=== PATIENT | female | born 1990 | race Caucasian/White ===

== ENCOUNTER 2024-09-02 13:54 | Outpatient (REF) | payer MEDICAID, SELFPAY ==
--- NOTE | ~2024-09-02 | XR_ITS ---
CLINICAL HISTORY: js p fall, pain Exam: AP, lateral, and open-mouth odontoid views of the cervical spine. Comparison: None. Findings: There is reversal of the normal cervical lordosis with mild kyphosis of the midcervical spine. No focal bony malalignment is identified. No fracture or prevertebral soft tissue swelling. Disc space heights are well preserved. Impression: 1. No fracture. 2. Findings most characteristic of muscle spasm. This document has been electronically signed by: Anson Leyva MD on 09/02/2024 17:43:34
--- NOTE | ~2024-09-02 | XR_ITS ---
CLINICAL HISTORY: S P FALL, PAIN Exam: AP, lateral, and spot lateral views of the lumbar spine. Comparison: None. Findings: Bony alignment of the lumbar vertebral bodies is anatomic. No acute fracture. Disc space heights are well preserved. Incidental note is made of a presumed umbilical piercing. Impression: No fracture. This document has been electronically signed by: Anson Leyva MD on 09/02/2024 17:40:53
--- NOTE | ~2024-09-02 | XR_ITS ---
CLINICAL HISTORY: s p fall, right sided neck pain 5 view mandible Comparison: None Findings: No acute fractures identified. No findings to suggest dislocation of the temporomandibular joints. Numerous dental restorations. There are areas of lucency within some of the teeth concerning for dental caries. Numerous piercing is identified. IMPRESSION: No acute fracture. This document has been electronically signed by: Anson Leyva MD on 09/02/2024 17:44:05
--- NOTE | ~2024-09-02 | XR_ITS ---
CLINICAL HISTORY: s p fall, pain Exam: AP, Grashey, and scapular Y-views of the right shoulder. Comparison: None. Findings: The distal clavicle is superiorly positioned in relation to the distal acromion by 7 mm. However, there is no abnormal widening of the acromioclavicular joint. Coracoclavicular distance remains within normal limits. Glenohumeral joint is well maintained. No acute fracture. Impression: Superior positioning distal clavicle in relation to the distal acromion without widening of the joint or increase in the coracoclavicular distance. This may be a normal variant for this patient versus a grade 1 separation. Correlation with the patient's mechanism of injury and location of pain suggested. This document has been electronically signed by: Anson Leyva MD on 09/02/2024 17:44:10
== END 2024-09-02 13:55 | disposition home or self-care (01) ==
LOC: HO.XRAY 13:54
PROVIDERS: PCP Physician Assistant Medical; Visit Provider Physician Assistant
DX: M25.311 Other instability, right shoulder (principal); R68.84 Jaw pain; M54.2 Cervicalgia; M54.50 Low back pain, unspecified
CPT/HCPCS: 70110; 72040; 72100; 73030

== ENCOUNTER → 2024-09-02 14:50 | Outpatient (BNV) | payer MEDICAID, SELFPAY | PROVIDERS: PCP Physician Assistant Medical; Visit Provider Radiology Diagnostic Radiology | DX: M54.2 Cervicalgia (principal); M54.50 Low back pain, unspecified; M25.511 Pain in right shoulder; R68.84 Jaw pain | CPT/HCPCS: 70110; 72040; 72100; 73030 ==

== ENCOUNTER 2024-11-01 10:22 | Outpatient (AMB) | payer MEDICAID, SELFPAY ==
--- NOTE | 2024-11-01 10:26 | A.OFFVIS_ITS ---
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 Patient was seen at [facility] Where she reported an injury to her neck on 08/30/24. Hx of POTS, she stood up and got dizzy causing a fall, she hit the right side of her neck on the bed frame. Patient states that she has pain and swelling in neck, increased pain with chewing. 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 She has constant pain on the right side of her whole body. She feels her right shoulder is hanging lower than her left. She has numbness and tingling in her arms and hands. Finds no relief with ibuprofen. No previous tx. 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 Most recently she fell hitting her upper shoulder and face on a toddler bed. She states she has been diagnosed with EDS and has multiple joint laxity and instability. She states she also experiences some neck and back pain along with some right hip pain. She states some of this stems from when she was and had some pressure in her pelvic region which subsequently she developed numbness along the right thigh. [facility] Social History (Updated 11/01/24 @ 10:32 by Patience Vo Salvador) e-Cigarette/Vaping Use: Currently Using Current occupational status: unemployed Current occupation: right hand dominant Review of Systems Const All systems reviewed & are unremarkable except as noted in HPI and below Physical Exam Vital Signs: BMI result Body Mass Index 20.1 Const General: cooperative and no acute distress Orientation/consciousness: patient oriented x3 Resp Effort & Inspection: normal respiratory effort and able to speak in complete sentences Cardio Peripheral pulses: Peripheral pulses 2+ throughout Neuro General: patient oriented x3 Extrem Other: Right shoulder normal to inspection. She has full range of motion in all planes. Positive sulcus sign. Significant crepitus with range of motion. Results Reviewed Results Reviewed: X-rays of the right shoulder are negative for chronic abnormalities Assessment & Plan Assessment & Plan (1) Pauline-Danlos syndrome: Code(s): Q79.60 - Pauline-Danlos syndrome, unspecified Category: Medical (2) Ligamentous laxity of right shoulder: Code(s): M24.211 - Disorder of ligament, right shoulder Category: Medical Plan I explained to the patient with her current diagnosis of a connective tissue disorder the appropriate treatment at this time would be to work with physical therapy to regain some stability and strength throughout the shoulder and scapular region. I put in a referral for her to see Dr. Lux to discuss her neck and back pain. She can contact me if there is any questions or concerns otherwise follow up as needed. Orders: Orders PT Evaluation and Treatment Today M24.211 - Disorder of ligament, right shoulder, Q79.60 - Pauline-Danlos syndrome, unspecified Coding Level of Care Code New Pt Level 3 (50535) Complex EM visit Add On G2211 Diagnoses Pauline-Danlos syndrome Q79.60 Ligamentous laxity of right shoulder M24.211
[2024-11-01 10:30] VITALS: BMI 20.1
== END 2024-11-01 10:59 | disposition home or self-care (01) ==
LOC: HO.HOS 10:23
PROVIDERS: Visit Provider Physician Assistant
DX: Q79.60 Ehlers-Danlos syndrome, unspecified (principal); M24.211 Disorder of ligament, right shoulder
CPT/HCPCS: 99203; G2211

== ENCOUNTER → 2024-11-01 10:22 | Outpatient (BNVA) | payer MEDICAID, SELFPAY | PROVIDERS: Visit Provider Physician Assistant | DX: Q79.60 Ehlers-Danlos syndrome, unspecified (principal); M25.211 Flail joint, right shoulder | CPT/HCPCS: 99202 ==

== ENCOUNTER 2024-12-06 13:55 | Outpatient (REF) | payer MEDICAID, SELFPAY ==
[2024-12-06 14:03] LABS: MANUAL DIFF FLAG NO
[2024-12-06 14:15] LABS: Basophils Percent Auto 0.5 % (0-2); Eosinophils Absolute Auto 0.1 X10*3/uL (0.0-0.4); Eosinophils Percent Auto 0.7 % (0-4); Hematocrit 39.3 % (37.0-47.0); Hemoglobin 13.3 g/dl (12.0-16.0); Imm Gran Abs Auto 0.02 X10*3/uL (0.00-0.03); Imm Gran Pct Auto 0.2 % (0.0-0.4); Lymphocytes Absolute Auto 2.2 X10*3/uL (1.2-4.9); Lymphocytes Percent Auto 26.6 % (20-40); Mean Corpuscular HGB Conc 33.8 g/dl (31.0-35.0); Mean Corpuscular Hemoglobin 29.6 pg (27.0-33.0); Mean Corpuscular Volume 87.3 fL (80.0-98.0); Mean Platelet Volume 9.6 fL (9.4-12.3); Monocytes Absolute Auto 0.7 X10*3/uL (0.1-1.2); Monocytes Percent Auto 8.7 % (2-11); Neutrophils Absolute Auto 5.3 x10*3/uL (2.0-8.3); Neutrophils Percent Auto 63.3 % (45-73); Platelet Count 240 X10*3/uL (160-400); White Blood Count 8.4 X10*3/uL (4.8-10.8)
== END 2024-12-06 13:56 | disposition home or self-care (01) ==
LOC: HO.LAB 13:55
PROVIDERS: PCP Physician Assistant Medical; Visit Provider Nurse Practitioner
DX: Z79.899 Other long term (current) drug therapy (principal)
CPT/HCPCS: 36415; 85025

== ENCOUNTER 2024-12-13 12:48 | Outpatient (RCR) | payer MEDICAID, SELFPAY ==
--- NOTE | 2024-11-29 16:12 | MHC.PT.EP ---
[facility] [place] Office [place] Office [place] Office [address] [phone] F: [phone] F: [phone] F: [phone] F: [phone] Physical Therapy Plan of Care Date of Evaluation: 11/29/24 Date of Surgery: Diagnosis: RIGHT shoulder ligamentous laxity Pauline-Danlos Syndrome, POTS Assessment: Jillian is a pleasant, motivated 34 y.o. female who is referred to PT by Marcelo Fernandez PA-C of [facility] orthopedic clicnic with Dx of RIGHT shoulder ligamentous laxity. Her PT rehabilitation will be impacted by co-morbidities of Apuline-Danlos Syndrome and POTS. Patient impairments include pain, radicular UE symptoms, thoracic outlet syndrome sxs, poor postures, need for joint protection. Patient current functional limitations are reaching above her head (doing her hair), sleeping, holding her son, carrying or lifting items with R arm, reaching overhead. Patient will benefit from skilled PT to address aforementioned impairments and functional limitations to meet established goals. Frequency and Duration: The patient will be seen 1-2x/week for 4 weeks Short Term Goals: 2 weeks Patient demonstrates consistency and independence with HEP to self manage symptoms. Systems Analyst Developer Goals: 4 weeks Patient is able to verbalize and demonstrate joint protection strategies with different positions (supine, seated) consistently. Patient presents with increased R shoulder flexion strength 5/5 to improve carrying items (groceries with R UE). Patient presents with increased R shoulder ER strength 4+/5 to be able to sleep without subluxation of shoulder. Treatment Plan: Modalities to reduce pain, spasms and effusion. Manual therapy to restore motion and function. Therapeutic exercise to improve strength and flexibility. Neuromuscular re-education for posture and balance. Therapeutic activities to return to functional activities of daily living. Electronically signed by: Jagdeep Benoit, PT, DPT Please sign and return to therapist. Thank you for your referral.
--- NOTE | 2025-01-28 16:03 | MHC.PT.DC ---
[facility] [place] Office [place] Office [place] Office [address] [phone] F: [phone] F: [phone] F: [phone] F: [phone] Physical Therapy Discharge Report Diagnosis: RIGHT shoulder ligamentous laxity Pauline-Danlos Syndrome, POTS Date of Surgery: Date of Evaluation: 11/29/24 Date of Discharge: 01/28/25 Treatments to Date: 3 Cancellations to Date: 1 No Shows to Date: 1 Discharge Status: Improved Function Independent with HEP Patient Elected to Stop Discharge Summary: Jillian Santa did well with PT treatment that was focused on increasing stability of shoulder joints due to having increased laxity due to Pauline-Danlos Syndrome. She felt kinesiotaping was helpful to support her shoulders and was instructed how to apply it herself should she want to purchase some for home. She is independent with HEP. She ceased attending PT on her own accord and is therefore discharged at this time. Electronically signed by: Jagdeep Benoit, PT, DPT Please sign and return to therapist. Thank you for your referral.
== END 2025-01-28 16:03 | disposition home or self-care (01) ==
LOC: HO.PT 12:48
PROVIDERS: PCP Physician Assistant Medical; Visit Provider Physician Assistant
DX: Q79.60 Ehlers-Danlos syndrome, unspecified (principal); M24.211 Disorder of ligament, right shoulder
CPT/HCPCS: 97110; 97140; 97162; 97530; 97535

== ENCOUNTER 2025-02-28 09:22 | Outpatient (AMB) | payer MEDICAID, SELFPAY ==
--- NOTE | 2025-02-28 09:24 | MHC.OFFVIS ---
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 Patient was referred by PCP Jaylin Sales PA-C of [facility] 09/10/24. Patient had an x ray of her right shoulder, lumbar and spine on 09/02/24.Patient was referred to physical therapy on 11/29/24 and did not complete. At today's visit she states that she would like to discuss possible injection options. Patient reports that she has had this pain since her teenage years and the pain increased after child . Patient states that her neck pain radiates down to her lower back, constant numbness and tinging. Allergies Penicillins Allergy (Verified 02/28/25 09:30) Unknown Medication List - Last Reconciled 02/28/25 by Olya Dumas MD clonidine HCl 0.1 mg PO BID cyclobenzaprine 10 mg PO BID PRN dextroamphetamine-amphetamine 20 mg 1 tab PO BID ibuprofen 800 mg PO TID PRN metoprolol succinate ER 50 mg PO DAILY HPI Comments Details: She was initially seen by Orthopedics mainly for right-sided neck/shoulder pain. From point of view of Orthopedics, she is cleared for right shoulder. Referred to physiatry for evaluation further of neck pain. Cervical x-ray images reviewed by me, showing preserved disc spaces but loss of kyphosis. This signifies cervical muscular spasms. Neck and back issues seem to be seperate. We will discuss neck today. Posterior neck area, lateral neck, shoots to shoulders and under shoulder blades. Numb on both arms and fingers. Pain with overhead activities. Hand numbness not noticed at night or morning. It does feel like right shoulder pops/sublux once a month since teenager years. No bladder/bowel changes. Fell/fainted August 2024. No other falls. Went to few sessions, 3-4 times, working on shoulder/neck. [facility] Social History (Updated 11/01/24 @ 10:32 by Patience Vo Salvador) e-Cigarette/Vaping Use: Currently Using Current occupational status: unemployed Current occupation: right hand dominant Review of Systems Const All systems reviewed & are unremarkable except as noted in HPI and below Physical Exam Exam Exam: Constitutional: Patient appears to be in no acute distress, well nourished and well developed. MSK: Inspection reveals appropriate head and neck positioning. There is some tightness over right upper trapezius. Right scapula much flatter than left scapula. No pain with palpation over the neck musculature. Cervical ROM was full. Spurling's sign negative. Bilateral shoulder ROM WNL. Right shoulder with ligamentous laxity or crepitance. No increased effusion. Empty can test is negative. Drop arm test is negative. Speed's test is negative. Neer's test is negative. Hawkin's test is negative. Apprehension test and Relocation test positive right? Strength is 5/5 in all muscle groups tested. No increased tone noted. Neurological: Neurologic examination of the upper and lower extremities was nonfocal with intact sensation, muscle stretch reflexes and without focal motor deficits . Monroe?s negative bilaterally. Babinski was down going bilaterally. Clonus was negative. Gait is non-antalgic without loss of balance. Vital Signs: BMI result Body Mass Index 20.1 Results Reviewed Results Reviewed: I independently reviewed the results of the following: As above Ordering Physician: Jaylin Sales Date of Service: 09/02/24 Procedure(s): XR shoulder RT min 2V Accession Number(s): [id number] cc: Jaylin Sales; RAHEEL BONILLA PA-C~ CLINICAL HISTORY: s p fall, pain Exam: AP, Grashey, and scapular Y-views of the right shoulder. Comparison: None. Findings: The distal clavicle is superiorly positioned in relation to the distal acromion by 7 mm. However, there is no abnormal widening of the acromioclavicular joint. Coracoclavicular distance remains within normal limits. Glenohumeral joint is well maintained. No acute fracture. Impression: Superior positioning distal clavicle in relation to the distal acromion without widening of the joint or increase in the coracoclavicular distance. This may be a normal variant for this patient versus a grade 1 separation. Correlation with the patient's mechanism of injury and location of pain suggested. This document has been electronically signed by: Anson Leyva MD on 09/02/2024 17:44:10 Ordering Physician: Jaylin Sales Date of Service: 09/02/24 Procedure(s): XR cervical spine 3V Accession Number(s): [id number] cc: Jaylin Sales; RAHEEL BONILLA PA-C~ CLINICAL HISTORY: js p fall, pain Exam: AP, lateral, and open-mouth odontoid views of the cervical spine. Comparison: None. Findings: There is reversal of the normal cervical lordosis with mild kyphosis of the midcervical spine. No focal bony malalignment is identified. No fracture or prevertebral soft tissue swelling. Disc space heights are well preserved. Impression: 1. No fracture. 2. Findings most characteristic of muscle spasm. This document has been electronically signed by: Anson Leyva MD on 09/02/2024 17:43:34 Ordering Physician: Jaylin Sales Date of Service: 09/02/24 Procedure(s): XR lumbar spine 2-3V Accession Number(s): [id number] cc: Jaylin Sales; RAHEEL BONILLA PA-C~ CLINICAL HISTORY: S P FALL, PAIN Exam: AP, lateral, and spot lateral views of the lumbar spine. Comparison: None. Findings: Bony alignment of the lumbar vertebral bodies is anatomic. No acute fracture. Disc space heights are well preserved. Incidental note is made of a presumed umbilical piercing. Impression: No fracture. This document has been electronically signed by: Anson Leyva MD on 09/02/2024 17:40:53 I reviewed records from the following: Ortho Assessment & Plan Assessment & Plan (1) Ligamentous laxity of right shoulder: Code(s): M24.211 - Disorder of ligament, right shoulder Category: Medical (2) Shoulder subluxation, right: Code(s): S43.001A - Unspecified subluxation of right shoulder joint, initial encounter Category: Medical Qualifiers: Encounter type: initial encounter (3) Chronic neck pain: Code(s): M54.2 - Cervicalgia; G89.29 - Other chronic pain Category: Medical (4) Numbness in both hands: Code(s): R20.0 - Anesthesia of skin Category: Medical (5) Myofascial pain: Code(s): M79.18 - Myalgia, other site Category: Medical (6) Pauline-Danlos syndrome: Code(s): Q79.60 - Pauline-Danlos syndrome, unspecified Category: Medical Plan Chronic recurrent right shoulder subluxation although remains nonpainful and full range of motion. Concern for shoulder labral tear. Chronic neck pain. Cervical x-ray shows loss of kyphosis with preserved disc spaces. Suspect myofascial pain. Investigate right shoulder further. MR arthrogram ordered. Discussed with patient notices done and patient amenable. We will schedule for EMG bilateral upper extremities rule out Carpal Tunnel Syndrome. We will schedule separate appointment to discuss other issues such as lower back pain and hip pain. Assessment and plan discussed with patient, and patient was agreeable. All questions were answered thoroughly. Olya Dumas MD, FRANCIS Board Certified, [place] Board of [employer] Medicine and Rehabilitation (ABPMR) Board Certified, [place] Board of Electrodiagnostic Medicine (ABEM) Orders: Orders MR shoulder RT w con Today G89.29 - Other chronic pain, M24.211 - Disorder of ligament, right shoulder, M25.511 - Pain in right shoulder, M54.2 - Cervicalgia, M79.18 - Myalgia, other site, Q79.60 - Pauline-Danlos syndrome, unspecified, R20.0 - Anesthesia of skin, S43.001A - Unspecified subluxation of right shoulder joint, initial encounter NE nerve conduction velocity Today R20.0 - Anesthesia of skin NE electromyogram (EMG) Today R20.0 - Anesthesia of skin Coding Level of Care Code New Pt Level 4 (69331) Complex EM visit Add On G2211 Diagnoses Ligamentous laxity of right shoulder M24.211 Shoulder subluxation, right S43.001A Encounter type: initial encounter Chronic neck pain M54.2; G89.29 Numbness in both hands R20.0 Myofascial pain M79.18 Pauline-Danlos syndrome Q79.60
[2025-02-28 09:25] VITALS: BMI 20.1
--- OUTSIDE RECORDS SUMMARY | 2025-02-28 09:36 | XMS_ITS | Encounter Summary ---
Author Organization [facility] Address [address] [facility] [address] [facility] [address] [place] [phone] Phone Care Team Providers Care Quality Control Inspector Name Role Phone Annie Garcia Primary Care Provider + [phone] Mehnaz Sarmiento MD Unavailable [phone] Linn Toussaint RN Unavailable Encounter Details Date Type Department Care Team (Late st Contact Info) Description 06/09/2022 Procedure Pass [facility] [place] [address] [place] [address] Social History Tobacco Use Types Packs/Day Years Used Date Smoking Tobacco: Former Smokeless Tobacco: Never Alcohol Use Standard Drinks/Week Comments Not Currently 0 (1 standard drink = 0.6 oz pur e alcohol) Comments No Sex and Gender Information Value Date Recorded Sex Assigned at Female 01/09/2020 9:58 PM EDT Legal Sex Female 8:58 PM EDT Gender Identity Female 01/09/2020 9:58 PM EDT Sexual Orientation Not on file Occupation Industry Job Start Date Job End Date Unemployed Not on file Not on file Not on file documented as of this encounter Plan of Treatment Not on file documented as of this encounter Visit Diagnoses Not on filedocumented in this encounter Care Teams Quality Control Inspector Relationship Specialty Start Date End Date Annie Garcia PA [address] [place] [id number] PCP - General Interactive Media Marketing Specialist 08/20/19 Mehnaz Sarmiento MD [address] [place] [address] [email or web address] Insurance Assigned Provider 05/14/22 04/15/23 Linn Toussaint RN [address] [place] [address] [email or web address] Fire Eater 08/13/24 09/10/24 documented as of this encounter Additional Source Comments The information contained in this document represents components of the legal health record. It is not the complete legal health record.[facility]
== END 2025-02-28 10:00 | disposition home or self-care (01) ==
LOC: HO.HOS 09:23
PROVIDERS: PCP Physician Assistant Medical; Visit Provider Physical Medicine & Rehabilitation
DX: M24.211 Disorder of ligament, right shoulder (principal); S43.001A Unspecified subluxation of right shoulder joint, initial encounter; M54.2 Cervicalgia; G89.29 Other chronic pain; R20.0 Anesthesia of skin; M79.18 Myalgia, other site; Q79.60 Ehlers-Danlos syndrome, unspecified
CPT/HCPCS: 99204; G2211

== ENCOUNTER → 2025-02-28 09:22 | Outpatient (BNVA) | payer MEDICAID, SELFPAY | PROVIDERS: PCP Physician Assistant Medical; Visit Provider Physical Medicine & Rehabilitation | DX: M24.211 Disorder of ligament, right shoulder (principal); S43.001A Unspecified subluxation of right shoulder joint, initial encounter; M54.2 Cervicalgia; G89.29 Other chronic pain; R20.0 Anesthesia of skin; M79.18 Myalgia, other site; Q79.60 Ehlers-Danlos syndrome, unspecified | CPT/HCPCS: 99202 ==

== ENCOUNTER 2025-03-28 13:51 | Outpatient (REF) | payer MEDICAID, SELFPAY ==
--- NOTE | ~2025-03-28 | FL_ITS ---
EXAMINATION: XR ARTHROGRAM SHOULDER, RIGHT CLINICAL INFORMATION: pain in right shoulder. COMPARISON: None available. TECHNIQUE: Following full and informed consent, the patient was placed in the supine position on the fluoroscopy table. Following this, the right shoulder joint was localized utilizing fluoroscopic guidance. The area was prepped and draped in a sterile manner and 1% Lidocaine anesthesia was applied to the skin and subcutaneous tissue for an anterolateral approach to the shoulder joint. Following this, a 22-gauge needle was advanced into the shoulder joint space utilizing fluoroscopic guidance. Following this, approximately 8 mL of a mixture (0.2 mL Gadavist, 2 mL lidocaine, and 6 mL Omnipaque 300) was injected into the joint space under direct fluoroscopic visualization. Following this, the needle was removed. The patient tolerated the procedure well and there were no immediate complications. FLUOROSCOPY TIME: 7 seconds. Total number of fluoroscopic images archived and saved in the patients permanent medical record: 3 FL/FL arthrogram shoulder RT IMPRESSION: 1. Successful right shoulder joint intra-articular injection with dilute gadolinium. The patient will undergo subsequent MRI. Electronically signed by: Jj Muñoz MD 03/28/2025 02:54 PM EDT
--- NOTE | ~2025-03-28 | MR_ITS ---
EXAMINATION: MR SHOULDER WITH CONTRAST, RIGHT CLINICAL INFORMATION: M25.511 - Pain in right shoulder PRIOR: None FINDINGS: Rotator Cuff: There is a full-thickness tear through anterior fibers of the supraspinatus tendon at the footprint without retraction. Rotator cuff is intact otherwise. Labrum: Intact. Long biceps tendon/Biceps bryce: The long biceps tendon is intact and not displaced from the groove. Acromioclavicular joint/subacromial subdeltoid bursa: The AC joint is intact and not degenerated. Acromial morphology is flat, type I. Axillary pouch: Anterior band of the inferior glenohumeral ligament is irregular and attenuated on the humeral side. Articular cartilage: There are no articular cartilage defects. Bones/Marrow: There are no marrow replacing lesions. Soft tissues: There is a mass in the axillary region located medial to the long biceps myotendinous junction and lateral to the short head biceps and coracobrachialis muscles. It is deep to the anterior head of the deltoid and pectoralis major muscles and superficial to teres major muscle. T1 imaging, it is intermediate signal. On fluid sensitive sequences, it is hypointense. In axial cross-section it measures 6 x 12 mm (AP by transverse). The inferior extent of the mass is not included on the study. MR/MR shoulder RT w con IMPRESSION: There is a full-thickness nonretracted tear of anterior supraspinatus tendon at the footprint. There is a HAGL lesion involving posterior band inferior glenohumeral ligament. There is an incompletely imaged mass located in between deep fascial planes anterior to the proximal humeral diaphysis that is incompletely imaged. Follow-up MRI of the right arm without and with IV contrast. Electronically signed by: Valdo Bassett MD 03/28/2025 03:24 PM EDT
[2025-03-28] MEDS: iohexoL 300 MG/ML 50 ML INFUS..BTL 10 ML INTRAARTIC (14:35)
[2025-03-28] MEDS: Lidocaine HCl 1 % MPF 30 ML VIAL INTRAARTIC (14:37)
== END 2025-03-28 13:52 | disposition home or self-care (01) ==
LOC: HO.XRAY 13:51
PROVIDERS: PCP Physician Assistant Medical; Visit Provider Physical Medicine & Rehabilitation
DX: S43.001A Unspecified subluxation of right shoulder joint, initial encounter (principal); Q79.60 Ehlers-Danlos syndrome, unspecified; M24.211 Disorder of ligament, right shoulder; M54.2 Cervicalgia; G89.29 Other chronic pain; R20.0 Anesthesia of skin; M79.18 Myalgia, other site; M25.511 Pain in right shoulder; X58.XXXA Exposure to other specified factors, initial encounter
CPT/HCPCS: 23350; 73040; 73222; A9585; J2003; Q9967

== ENCOUNTER → 2025-03-28 13:54 | Outpatient (BNV) | payer MEDICAID, SELFPAY | PROVIDERS: PCP Physician Assistant Medical; Visit Provider Radiology Diagnostic Radiology | DX: M75.121 Complete rotator cuff tear or rupture of right shoulder, not specified as traumatic (principal) | CPT/HCPCS: 23350 ==